=== PATIENT | female | born 1975 | race Two or more races ===

== ENCOUNTER 2022-01-18 10:48 | Emergency (ER) | payer BC, OTHER ==
[~2022-01-18] VITALS: Ht 162.6 cm; Wt 59.0 kg
[2022-01-18 17:18] LABS: Basophils # (auto) 0 10 ^3/uL (0-0.2); Eosinophils # (auto) 0 10 ^3/uL (0-0.8); Hemoglobin 8.2 g/dL (12.2-16.2); Lymphocytes # (auto) 0.9 10 ^3/uL (0.4-5.4); Monocytes # (auto) 0.4 10 ^3/uL (0-1.3); Neutrophils # (auto) 1.6 10 ^3/uL (1.6-8.6)
[2022-01-18 17:20] LABS: Basophils % (auto) 0.9 % (0.0-2.0); Eosinophils % (auto) 1.1 % (0.0-7.0); Hematocrit 27.1 % (36.0-46.0); Lymphocytes % (auto) 30.6 % (10.0-50.0); Mean Corpuscular Hemoglobin 20.3 pg (28.0-32.0); Mean Corpuscular Hgb Conc. 30.5 g/dL (32.0-36.0); Mean Corpuscular Volume 66.5 fL (80.0-100.0); Monocytes % (auto) 12.6 % (0.0-12.0); Neutrophils % (auto) 54.8 % (37.0-80.0); Red Blood Cells 4.07 10^6/uL (4.0-5.20); Red Cell Distribution Width 18.2 % (11.8-14.3); White Blood Cell 2.9 10^3/uL (4.4-10.8)
[2022-01-18 17:36] LABS: BUN/Creatinine Ratio 12.9; Calcium 8.3 mg/dL (8.5-10.1); Potassium 3.7 mmol/L (3.5-5.1)
[2022-01-18 17:39] LABS: Bilirubin, Total 0.5 mg/dL (0.2-1.0); Total Protein 6.9 g/dL (6.4-8.2)
[2022-01-18 18:57] LABS: Urine Bacteria NONE SEEN /hpf (None Seen); Urine Blood Negative /uL (Negative); Urine Mucus FEW (None Seen); Urine Specific Gravity 1.028 (1.001-1.035); Urine WBC 4 /hpf (0 - 5)
[2022-01-18] MEDS ORDERED: SODIUM CHLORIDE 0.9% 1,000 ML IV ONE (21:30)
[2022-01-18 23:34] VITALS: BP 114/55
== END 2022-01-18 22:20 | disposition home or self-care (01) ==
LOC: ER 10:48 → EDBD 10:48 → ER 22:20
DX: E86.0 Dehydration (principal)
CPT/HCPCS: 36415; 80053; 81001; 81025; 85025; 96360; 99283; J7030

== ENCOUNTER 2023-06-12 13:11 | Inpatient (IN) | payer BC ==
[2023-06-12] VITALS (7 sets, daily range): BP systolic 91–115; BP diastolic 35–66; PULSE 71–89; RESP 14–23; TEMP 97.9–99; O2SAT 96–97
[~2023-06-12] VITALS: Ht 172.7 cm; Wt 75.0 kg
[2023-06-12 14:51] LABS: % Iron Saturation 3.1 % (15-50)
[2023-06-12] MEDS ORDERED: DOCUSATE SOD 100 MG CAP PO PRN (15:30)
[2023-06-12] MEDS ORDERED: NITROGLYCERIN 0.4 MG SL TAB SL PRN (15:30)
[2023-06-12] MEDS ORDERED: ONDANSETRON HCL 4 MG/2 ML VIAL IV PRN (15:30)
[2023-06-12] MEDS ORDERED: MORPHINE SULFATE INJ 2 MG/ml SYRG IV PRN (15:30)
[2023-06-12] MEDS ORDERED: ACETAMINOPHEN 325 MG TAB PO PRN (15:30)
[2023-06-12] MEDS: SODIUM CHLORIDE 0.9% 1,000 ML IVB ONE (16:00)
[2023-06-12] MEDS: chlordiazePOXIDE HCL 25 MG CAP PO SCH (16:24)
[2023-06-12] MEDS: FOLIC ACID 1 MG, MULTIPLE VITAMIN 10 ML, MAGNESIUM SULF SDV 50% 8 MEQ, THIAMINE INJ 100... INJ SCH (18:00)
[2023-06-12] MEDS: LORazepam 2MG/ML-1ML VIAL IV SCH (18:03)
[2023-06-12 20:43] LABS: Urine Bacteria NONE SEEN /hpf (None Seen); Urine Blood Negative /uL (Negative); Urine Clarity Clear (Clear); Urine Color Colorless (Yellow); Urine Protein, UAD Negative (Negative); Urine Specific Gravity 1.013 (1.001-1.035); Urine Urobilinogen Normal (Negative); Urine WBC <1 /hpf (0 - 5); Urine pH 5.5 (5.0-8.0)
[2023-06-12 20:56] LABS: Amphetamine Screen, Urine Neg (NEGATIVE); Barbiturate Scree,Urine Neg (NEGATIVE); Benzodiazephine Screen, Urine Neg (NEGATIVE); Cannabinoid Screen, Urine Neg (NEGATIVE); Cocaine Screen, Urine Neg (NEGATIVE); Opiate Scree,Urine Neg (NEGATIVE); Phencyclidine Screen, Urine Neg (NEGATIVE)
[2023-06-13] VITALS (10 sets, daily range): BP systolic 98–109; BP diastolic 43–66; PULSE 20–86; RESP 14–21; TEMP 98.2–98.7; O2SAT 96–97
[2023-06-13] MEDS ORDERED: MORPHINE SULFATE INJ 2 MG/ml SYRG IV PRN (01:15)
[2023-06-13] MEDS ORDERED: NITROGLYCERIN 0.4 MG SL TAB SL PRN (01:15)
[2023-06-13] MEDS ORDERED: ONDANSETRON HCL 4 MG/2 ML VIAL IV PRN (01:15)
[2023-06-13] MEDS ORDERED: ACETAMINOPHEN 325 MG TAB PO PRN (01:15)
[2023-06-13] MEDS: chlordiazePOXIDE HCL 25 MG CAP PO SCH ×2 (02:00→21:24)
[2023-06-13] MEDS: FUROSEMIDE 20 MG/2 ML VIAL IV ONE (02:00)
[2023-06-13] MEDS: LORazepam 2MG/ML-1ML VIAL IV SCH (02:02)
[2023-06-13 06:33] LABS: Basophils # (auto) 0 10 ^3/uL (0-0.2); Basophils % (auto) 1.1 % (0.0-2.0); Eosinophils # (auto) 0.1 10 ^3/uL (0-0.8); Hematocrit 30.9 % (36.0-46.0); Hemoglobin 9.2 g/dL (12.2-16.2); Lymphocytes # (auto) 1.3 10 ^3/uL (0.4-5.4); Lymphocytes % (auto) 37.7 % (10.0-50.0); Mean Corpuscular Hemoglobin 19.8 pg (28.0-32.0); Mean Corpuscular Hgb Conc. 29.9 g/dL (32.0-36.0); Mean Corpuscular Volume 66.3 fL (80.0-100.0); Monocytes # (auto) 0.5 10 ^3/uL (0-1.3); Monocytes % (auto) 16.2 % (0.0-12.0); Neutrophils # (auto) 1.4 10 ^3/uL (1.6-8.6); Nucleated Red Blood Cells % 0.2 %; Red Blood Cells 4.65 10^6/uL (4.0-5.20); Red Cell Distribution Width 30.4 % (11.8-14.3); White Blood Cell 3.3 10^3/uL (4.4-10.8)
[2023-06-13 06:48] LABS: Alanine Aminotransferase 12 U/L (7-40); Albumin 3.9 g/dL (3.2-4.8); Alkaline Phosphatase 40 U/L (46-116); Anion Gap 5 (5-15); Aspartate Aminotransferase 13 U/L (13-40); BUN/Creatinine Ratio 15.1 (10.0-20.0); Bilirubin, Total 1.1 mg/dL (0.2-1.0); Blood Urea Nitrogen 8 mg/dL (9-23); Calcium 8.4 mg/dL (8.7-10.4); Carbon Dioxide 26 mmol/L (20-30); Chloride 110 mmol/L (98-107); Glucose 98 mg/dL (74-106); Potassium 4.2 mmol/L (3.5-5.1); Sodium 141 mmol/L (136-145); Total Protein 5.7 g/dL (5.7-8.2)
[2023-06-13] MEDS ORDERED: chlordiazePOXIDE HCL 25 MG CAP PO SCH (10:00)
[2023-06-13] MEDS ORDERED: ceFAZolin 2 GM/D5W50ml 50 ML IV ONE (11:15)
[2023-06-13] MEDS: LACTATED RINGER'S 1,000 ML IV SCH (12:02)
[2023-06-13] MEDS ORDERED: TRAZ300T16 PO (16:58)
[2023-06-13] MEDS ORDERED: ALPR0.25 PO (16:58)
[2023-06-14 05:00] VITALS: BP 100/62; PULSE 68; RESP 20; TEMP 97.1; O2SAT 97
[2023-06-14 06:14] LABS: Hemoglobin 9.5 g/dL (12.2-16.2); Mean Corpuscular Volume 66.7 fL (80.0-100.0); White Blood Cell 3.6 10^3/uL (4.4-10.8)
[2023-06-14 06:16] LABS: Hematocrit 31.8 % (36.0-46.0); Mean Corpuscular Hemoglobin 19.8 pg (28.0-32.0); Mean Corpuscular Hgb Conc. 29.7 g/dL (32.0-36.0); Red Blood Cells 4.77 10^6/uL (4.0-5.20)
[2023-06-14 06:30] LABS: Alanine Aminotransferase 11 U/L (7-40); Alkaline Phosphatase 45 U/L (46-116); Anion Gap 6 (5-15); Calcium 8.6 mg/dL (8.5-10.1); Carbon Dioxide 24 mmol/L (20-30); Chloride 110 mmol/L (98-107); Glucose 101 mg/dL (74-106); Potassium 3.8 mmol/L (3.5-5.1); Sodium 140 mmol/L (136-145)
[2023-06-14 06:31] LABS: Albumin 3.8 g/dL (3.2-4.8); Aspartate Aminotransferase 17 U/L (13-40); Bilirubin, Total 0.6 mg/dL (0.2-1.0); Total Protein 5.8 g/dL (5.7-8.2)
[2023-06-14 06:32] LABS: INR 1.13 (0.9-1.15); Partial Thromboplastin Time 26.1 SEC (24.5-34.5); Prothrombin Time 11.8 sec (9.3-11.8); Red Cell Distribution Width 30.5 % (11.8-14.3)
[2023-06-14 06:33] LABS: BUN/Creatinine Ratio 10.2 (10.0-20.0); Blood Urea Nitrogen < 5 mg/dL (9-23)
[2023-06-14 06:34] LABS: Basophils % (manual) 0 (0.0-2.0); Blast Cells 0; Promyelocytes % 0; Reactive Lymphocytes 0
[2023-06-14 06:49] LABS: Anisocytosis Moderate; Band Neutrophils % (manual) 6; Eosinophils % (manual) 5 (0-7); Hypochromia Moderate; Lymphocytes % (manual) 21 (10.0-50.0); Metamyelocytes % 3; Monocytes % (manual) 7 (0-12); Myelocytes % 2; Platelet Estimate Adequate; Smudge Cells 1 /100 WBC
[2023-06-14 08:00] VITALS: PULSE 70
[2023-06-14 09:00] VITALS: BP 95/57; PULSE 68; RESP 20; TEMP 98.4; O2SAT 94
[2023-06-14] MEDS: ceFAZolin 2 GM/D5W50ml 50 ML IV ONE (10:00)
[2023-06-14] MEDS ORDERED: chlordiazePOXIDE HCL 25 MG CAP PO SCH (10:00)
[2023-06-14] MEDS ORDERED: ACETAMINOPHEN 500 MG TAB PO ONE (11:00)
[2023-06-14] MEDS ORDERED: DexAMETHasone SOD PHOS 10MG/1ML VIAL INJ ONE (11:58)
[2023-06-14] MEDS ORDERED: PROPOFOL 10 MG/ML 20 ML IV ONE (11:58)
[2023-06-14] MEDS ORDERED: MEPERIDINE HCL (50 MG/ML) 1 ML VIAL ONE (11:58)
[2023-06-14] MEDS ORDERED: MIDAZOLAM HCL 2MG/2ML 2ml VIAL (1mg/ml) ONE (11:58)
[2023-06-14] MEDS ORDERED: fentaNYL CITRATE 100 MCG/2 ML VL ONE ×2 (11:58→13:11)
[2023-06-14] MEDS: BUPIVACAINE 0.25% INJ 50ML VIAL ONE (12:06)
[2023-06-14] MEDS: BUPIVACAINE HCL 50 ML ONE (12:06)
[2023-06-14] MEDS: EPINEPHrine HCL 1 MG/1 ML AMP ONE (12:06)
[2023-06-14] MEDS: DexAMETHasone SOD PHOS 4 MG/1ML SDV INJ ONE (12:06)
[2023-06-14] MEDS: ACETAMINOPHEN IV 100 ML IV ONE (12:11)
[2023-06-14] MEDS: GABAPENTIN 300 MG CAP PO ONE (12:15)
[2023-06-14] MEDS: CELECOXIB 100 MG CAP PO ONE (12:15)
[2023-06-14] MEDS: ACETAMINOPHEN IV 1000 MG/100ML (10MG/ML) IV ONE (12:15)
[2023-06-14] MEDS ORDERED: ONDANSETRON HCL 4 MG/2 ML VIAL IV PRN ×2 (12:45→14:45)
[2023-06-14] MEDS ORDERED: MORPHINE SULFATE 4 MG/ML SYR/VIAL IV PRN (12:45)
[2023-06-14] MEDS ORDERED: MIDAZOLAM HCL 2MG/2ML 2ml VIAL (1mg/ml) IV PRN (12:45)
[2023-06-14] MEDS ORDERED: hydrALAZINE HCL 20 MG/ML VL IV PRN (12:45)
[2023-06-14] MEDS ORDERED: LABETALOL HCL 5 MG/ML 4ML SYRINGE IV PRN (12:45)
[2023-06-14] MEDS ORDERED: SUGAMMADEX 200mg/2ml Vial (100MG/ML) IV ONE (12:52)
[2023-06-14] MEDS ORDERED: ONDANSETRON HCL 4 MG/2 ML VIAL ONE (13:11)
[2023-06-14 14:17] VITALS: RESP 14; O2SAT 98
[2023-06-14] MEDS: LIDOCAINE 1% HCL (LOCAL ANESTH.) INJ 20ML MDV ONE (14:25)
[2023-06-14] MEDS: HYDROmorphone HCL 2 MG/ML VL/or syr IV PRN (15:23)
[2023-06-14] MEDS: HYDROcodone-ACET 5/325MG TAB PO PRN ×2 (15:52)
[2023-06-14 20:00] VITALS: PULSE 67; RESP 15; O2SAT 98
[2023-06-14] MEDS: chlordiazePOXIDE HCL 25 MG CAP PO SCH (21:15)
[2023-06-14 22:00] VITALS: BP 108/69; PULSE 67; RESP 19; TEMP 98.1; O2SAT 96
[2023-06-15] VITALS (7 sets, daily range): BP systolic 105–119; BP diastolic 63–79; PULSE 53–86; RESP 15–18; TEMP 97.4–98; O2SAT 96–99
[2023-06-15] MEDS ORDERED: LAMO100T44 PO (03:20)
[2023-06-15] MEDS ORDERED: PROP1TAB51 PO (03:20)
[2023-06-15] MEDS: HYDROmorphone HCL 2 MG/ML VL/or syr IV PRN (04:11)
[2023-06-15 05:34] LABS: Basophils # (auto) 0 10 ^3/uL (0-0.2); Basophils % (auto) 0.1 % (0.0-2.0); Eosinophils # (auto) 0 10 ^3/uL (0-0.8); Eosinophils % (auto) 0.1 % (0.0-7.0); Hematocrit 33.1 % (36.0-46.0); Hemoglobin 9.7 g/dL (12.2-16.2); Lymphocytes # (auto) 0.9 10 ^3/uL (0.4-5.4); Lymphocytes % (auto) 8.7 % (10.0-50.0); Mean Corpuscular Hemoglobin 19.6 pg (28.0-32.0); Mean Corpuscular Hgb Conc. 29.3 g/dL (32.0-36.0); Mean Corpuscular Volume 67.1 fL (80.0-100.0); Monocytes # (auto) 0.7 10 ^3/uL (0-1.3); Monocytes % (auto) 7.6 % (0.0-12.0); Neutrophils # (auto) 8.2 10 ^3/uL (1.6-8.6); Neutrophils % (auto) 83.5 % (37.0-80.0); Red Blood Cells 4.93 10^6/uL (4.0-5.20); Red Cell Distribution Width 30.7 % (11.8-14.3); White Blood Cell 9.8 10^3/uL (4.4-10.8)
[2023-06-15 05:58] LABS: Alanine Aminotransferase 12 U/L (7-40); Albumin 3.9 g/dL (3.2-4.8); Alkaline Phosphatase 36 U/L (46-116); Anion Gap 5 (5-15); Aspartate Aminotransferase 22 U/L (13-40); Bilirubin, Total 0.7 mg/dL (0.2-1.0); Carbon Dioxide 27 mmol/L (20-30); Chloride 109 mmol/L (98-107); Glucose 121 mg/dL (74-106); Sodium 141 mmol/L (136-145)
[2023-06-15 06:04] LABS: BUN/Creatinine Ratio 10.2 (10.0-20.0); Blood Urea Nitrogen < 5 mg/dL (9-23)
[2023-06-15] MEDS ORDERED: chlordiazePOXIDE HCL 25 MG CAP PO SCH (07:00)
[2023-06-15] MEDS: KETOROLAC TROMETH 30 MG/ML 1ML VIAL IV PRN (11:03)
[2023-06-15] MEDS: DOCUSATE SOD 100 MG CAP PO PRN (15:47)
[2023-06-15] MEDS: LORazepam 2MG/ML-1ML VIAL IV SCH (20:00)
[2023-06-16 05:12] VITALS: BP 107/69; PULSE 69; RESP 16; TEMP 97.9; O2SAT 96
[2023-06-16] MEDS: chlordiazePOXIDE HCL 25 MG CAP PO SCH (06:04)
[2023-06-16 06:17] LABS: Basophils # (auto) 0 10 ^3/uL (0-0.2); Eosinophils # (auto) 0.1 10 ^3/uL (0-0.8); Hemoglobin 8.6 g/dL (12.2-16.2); Monocytes # (auto) 0.5 10 ^3/uL (0-1.3); White Blood Cell 4.8 10^3/uL (4.4-10.8)
[2023-06-16 06:29] LABS: Basophils % (auto) 0.5 % (0.0-2.0); Eosinophils % (auto) 2.3 % (0.0-7.0); Hematocrit 28.9 % (36.0-46.0); Lymphocytes # (auto) 1.2 10 ^3/uL (0.4-5.4); Lymphocytes % (auto) 24.6 % (10.0-50.0); Mean Corpuscular Hemoglobin 20.2 pg (28.0-32.0); Mean Corpuscular Hgb Conc. 29.8 g/dL (32.0-36.0); Mean Corpuscular Volume 67.6 fL (80.0-100.0); Monocytes % (auto) 11.1 % (0.0-12.0); Neutrophils # (auto) 2.9 10 ^3/uL (1.6-8.6); Neutrophils % (auto) 61.5 % (37.0-80.0); Red Blood Cells 4.28 10^6/uL (4.0-5.20)
[2023-06-16 06:45] LABS: Red Cell Distribution Width 31.3 % (11.8-14.3)
[2023-06-16 07:30] VITALS: BP 108/67; PULSE 64; RESP 15; TEMP 97.7; O2SAT 96
[2023-06-16 08:00] VITALS: PULSE 64; PULSE 71; RESP 15; O2SAT 96
[2023-06-16 09:30] LABS: Hypochromia Marked; Platelet Estimate Adequate
[2023-06-16 09:31] LABS: Anisocytosis Moderate; Ovalocytes FEW
[2023-06-16] MEDS ORDERED: FERR-7 PO (10:29)
[2023-06-16] MEDS ORDERED: THIA100T13 PO (10:29)
[2023-06-16] MEDS ORDERED: HYDR-4902 PO (10:29)
[2023-06-16] MEDS ORDERED: FOLI-119 PO (10:29)
[2023-06-16 11:46] VITALS: BP 108/72; PULSE 65; RESP 17; TEMP 98.8; O2SAT 97
[2023-06-16] MEDS ORDERED: IRON SUCROSE COMPLEX IV SCH (12:00)
[2023-06-16] MEDS ORDERED: [UNRECOGNIZED DRUG - OTHER] IV SCH (12:00)
[2023-06-16 13:00] VITALS: BP 108/72; PULSE 65; RESP 16; TEMP 98.8; O2SAT 97
[2023-06-16] MEDS: IRON SUCROSE COMPLEX 100 ML IV SCH (13:50)
[2023-06-16] MEDS ORDERED: PHENYLEPHRINE HCL 10 MG/ML VL IV ONE (14:13)
== END 2023-06-16 14:14 | disposition home or self-care (01) | DRG 742 ==
LOC: ER 13:11 → TELE 15:36 → TELE-WESTW 06-13 15:16
PROVIDERS: ADMIT Obstetrics & Gynecology; ATTEND Obstetrics & Gynecology
PROC: 30233N1 Transfusion of Nonautologous Red Blood Cells into Peripheral Vein, Percutaneous Approach (ICD-10-PCS; principal; 2023-06-12)
PROC: 0UB10ZZ Excision of Left Ovary, Open Approach (ICD-10-PCS; 2023-06-14)
PROC: 0UT90ZZ Resection of Uterus, Open Approach (ICD-10-PCS; 2023-06-14)
PROC: 0UB70ZZ Excision of Bilateral Fallopian Tubes, Open Approach (ICD-10-PCS; 2023-06-14)
PROC: 0TJB8ZZ Inspection of Bladder, Via Natural or Artificial Opening Endoscopic (ICD-10-PCS; 2023-06-14)
DX: D25.9 Leiomyoma of uterus, unspecified (principal); D62 Acute posthemorrhagic anemia; D50.9 Iron deficiency anemia, unspecified; N92.0 Excessive and frequent menstruation with regular cycle; D72.819 Decreased white blood cell count, unspecified; R55 Syncope and collapse; F10.20 Alcohol dependence, uncomplicated; F17.200 Nicotine dependence, unspecified, uncomplicated; F31.9 Bipolar disorder, unspecified; F41.9 Anxiety disorder, unspecified; Z79.899 Other long term (current) drug therapy
CPT/HCPCS: 36415; 36430; 71045; 76856; 80053; 80307; 80320; 81001; 82728; 83540; 83550; 84702; 85007; 85025; 85027; 85610; 85730; 86850; 86900; 86901; 86920; 93005; 96360; 99291; G0378; J0131; J0171; J1100; J1756; J1885; J2001; J2250; J2405; J2704; J3490; J7060

== ENCOUNTER → 2023-06-12 | Outpatient (CLI) | payer BC ==
[~2023-06-12] MED LIST: ALPR0.25 PO; LAMO100T44 PO; PROP1TAB51 PO; TRAZ300T16 PO
[2023-06-12 09:27] LABS: Mean Corpuscular Volume 57.1 fL (80.0-100.0); White Blood Cell 2.6 10^3/uL (4.4-10.8)
[2023-06-12 09:30] LABS: Hematocrit 21.5 % (36.0-46.0); Mean Corpuscular Hemoglobin 15.8 pg (28.0-32.0); Mean Corpuscular Hgb Conc. 27.6 g/dL (32.0-36.0); Red Blood Cells 3.76 10^6/uL (4.0-5.20)
[2023-06-12 09:36] LABS: Urine Bacteria NONE SEEN /hpf (None Seen); Urine Blood Negative /uL (Negative); Urine Clarity HAZY (Clear); Urine Color Yellow (Yellow); Urine Hyaline Cast FEW /lpf (0 - 2); Urine Mucus FEW (None Seen); Urine Protein, UAD TRACE (Negative); Urine Specific Gravity 1.021 (1.001-1.035); Urine Urobilinogen Normal (Negative); Urine WBC 2 /hpf (0 - 5)
[2023-06-12 09:50] LABS: Red Cell Distribution Width 20.6 % (11.8-14.3)
[2023-06-12 09:54] LABS: Band Neutrophils % (manual) 0; Basophils % (manual) 0 (0.0-2.0); Blast Cells 0; Eosinophils % (manual) 0 (0-7); Hemoglobin 5.9 g/dL (12.2-16.2); Metamyelocytes % 0; Myelocytes % 0; Promyelocytes % 0
[2023-06-12 10:15] LABS: Alanine Aminotransferase 15 U/L (7-40); Albumin 4.6 g/dL (3.2-4.8); Alkaline Phosphatase 40 U/L (46-116); Anion Gap 9 (5-15); Aspartate Aminotransferase 21 U/L (13-40); BUN/Creatinine Ratio 15.8 (10.0-20.0); Bilirubin, Total 0.5 mg/dL (0.2-1.0); Blood Urea Nitrogen 9 mg/dL (9-23); Calcium 9.3 mg/dL (8.5-10.1); Carbon Dioxide 26 mmol/L (20-30); Chloride 104 mmol/L (98-107); Cholesterol 167 mg/dL (< 200); Glucose 88 mg/dL (74-106); HDL Cholesterol 88 mg/dL (40-59); LDL Cholesterol 70 mg/dL (< 100); Potassium 3.7 mmol/L (3.5-5.1); Sodium 139 mmol/L (136-145); Triglycerides 53 mg/dL (< 150)
[2023-06-12 10:53] LABS: Hypochromia Marked; Lymphocytes % (manual) 23 (10.0-50.0); Monocytes % (manual) 12 (0-12); Platelet Estimate Adequate; Reactive Lymphocytes 3
[2023-06-12 10:54] LABS: Anisocytosis Slight
== END | disposition home or self-care (01) ==
LOC: LAB 09:00
PROVIDERS: ATTEND Nurse Practitioner
DX: I10 Essential (primary) hypertension (principal); E78.5 Hyperlipidemia, unspecified
CPT/HCPCS: 36415; 80053; 80061; 81001; 83036; 84443; 85007; 85027

== ENCOUNTER 2023-06-19 16:05 | Emergency (ER) | payer BC ==
[~2023-06-19] VITALS: Ht 172.7 cm; Wt 73.3 kg
[~2023-06-19 16:05] MED LIST changes: +FERR-7 PO; +FOLI-119 PO; +HYDR-4902 PO; +THIA100T13 PO
[2023-06-19 16:37] VITALS: BP 108/64; PULSE 81; RESP 18; O2SAT 97
[2023-06-19] MEDS ORDERED: BACDST PO (20:55)
== END 2023-06-19 22:04 | disposition left against medical advice (07) ==
LOC: ER 16:05
DX: I82.612 Acute embolism and thrombosis of superficial veins of left upper extremity (principal); L03.114 Cellulitis of left upper limb; L02.414 Cutaneous abscess of left upper limb; F41.9 Anxiety disorder, unspecified; F32.9 Major depressive disorder, single episode, unspecified; Z79.899 Other long term (current) drug therapy
CPT/HCPCS: 93971

== ENCOUNTER → 2023-10-25 | Outpatient (CLI) | payer BC ==
[~2023-10-25] MED LIST changes: +BACDST PO
[2023-10-25 13:15] LABS: Basophils # (auto) 0 10 ^3/uL (0-0.2); Basophils % (auto) 0.4 % (0.0-2.0); Eosinophils # (auto) 0.1 10 ^3/uL (0-0.8); Eosinophils % (auto) 2.4 % (0.0-7.0); Hematocrit 45.4 % (36.0-46.0); Hemoglobin 15.7 g/dL (12.2-16.2); Lymphocytes % (auto) 34.7 % (10.0-50.0); Mean Corpuscular Hemoglobin 31.5 pg (28.0-32.0); Mean Corpuscular Hgb Conc. 34.6 g/dL (32.0-36.0); Mean Corpuscular Volume 91.2 fL (80.0-100.0); Monocytes # (auto) 0.5 10 ^3/uL (0-1.3); Monocytes % (auto) 9.4 % (0.0-12.0); Neutrophils % (auto) 53.1 % (37.0-80.0); Red Blood Cells 4.97 10^6/uL (4.0-5.20); Red Cell Distribution Width 13.7 % (11.8-14.3); White Blood Cell 5.7 10^3/uL (4.4-10.8)
[2023-10-25 13:47] LABS: Alanine Aminotransferase 17 U/L (7-40); Albumin 4.7 g/dL (3.2-4.8); Alkaline Phosphatase 79 U/L (46-116); Anion Gap 4 (5-15); Aspartate Aminotransferase 11 U/L (13-40); BUN/Creatinine Ratio 19.7 (10.0-20.0); Blood Urea Nitrogen 13 mg/dL (9-23); Calcium 10.2 mg/dL (8.5-10.1); Carbon Dioxide 29 mmol/L (20-30); Chloride 104 mmol/L (98-107); Glucose 100 mg/dL (74-106); Potassium 4.7 mmol/L (3.5-5.1); Sodium 137 mmol/L (136-145)
[2023-10-25 13:48] LABS: Bilirubin, Total 0.5 mg/dL (0.2-1.0); Total Protein 7.2 g/dL (5.7-8.2)
== END | disposition home or self-care (01) ==
LOC: LAB 12:56
PROVIDERS: ATTEND Nurse Practitioner
DX: D50.9 Iron deficiency anemia, unspecified (principal)
CPT/HCPCS: 36415; 80053; 85025